=== PATIENT | female | born 1995 | race Caucasian/White ===

== ENCOUNTER 2020-01-09 08:00 | Day surgery (SDC) | payer OTHER, MEDICAID ==
[~2020-01-09] VITALS: Ht 154.9 cm; Wt 143.2 kg
[~2020-01-09 08:00] MED LIST: AMPICILLIN SODIUM 1 GM/VIAL ONE; RINGERS SOLUTION,LACTATED 1,000 ML IV ONE; SODIUM CHLORIDE 0.9% 100 ML ONE
[2020-01-09] MEDS ORDERED: MONT-35 PO (08:17)
[2020-01-09] MEDS ORDERED: LACO10SO3 PO (08:17)
[2020-01-09] MEDS ORDERED: BUTE12CR TP (08:17)
[2020-01-09] MEDS ORDERED: AZEL137S8 NASAL (08:17)
[2020-01-09] MEDS ORDERED: PHEN32.46 PO (08:17)
[2020-01-09] MEDS ORDERED: CLON-465 PO (08:17)
[2020-01-09] MEDS ORDERED: DESO1TAB92 PO (08:17)
[2020-01-09] MEDS ORDERED: FLUO-191 PO (08:17)
[2020-01-09] MEDS ORDERED: LORA10TA7 PO (08:17)
[2020-01-09] MEDS ORDERED: MULT1CAP32 PO (08:17)
[2020-01-09] MEDS ORDERED: PHEN60TA15 PO (08:17)
[2020-01-09] MEDS ORDERED: PHEN20EL8 PO ×2 (08:17)
[2020-01-09] MEDS ORDERED: NYST15PO3 TP (08:17)
[2020-01-09] MEDS ORDERED: AUD NEB (08:17)
[2020-01-09 08:25] LABS: COVID AG,FIA SOURCE NASOPHARYNGEAL
[2020-01-09 08:33] LABS: BASOPHILS % (AUTO) 1.2 % (0.0-2.0); EOSINOPHILS % (AUTO) 0.5 % (1.0-6.0); HEMATOCRIT 38.4 % (36-46); HEMOGLOBIN 13.4 g/dL (12.0-16.0); LYMPHOCYTES # (AUTO) 1.8 K/uL (1.0-4.8); LYMPHOCYTES % (AUTO) 18.1 % (22.0-44.0); MEAN CORPUSCULAR HEMOGLOBIN 30.4 pg (26.0-34.0); MEAN CORPUSCULAR VOLUME 87 fL (80-100); MONOCYTES # (AUTO) 0.9 K/uL (0.1-1.0); MONOCYTES % (AUTO) 9.2 % (2.0-9.0); NEUTROPHILS # (AUTO) 7.2 K/uL (1.8-7.7); PLATELET COUNT (AUTO) 226 K/uL (150-450); RED BLOOD CELL COUNT(AUTO) 4.43 MIL/uL (4.00-5.20); RED CELL DISTRIBUTION WIDTH 14.9 % (11.5-14.5)
[2020-01-09 08:38] LABS: ANION GAP 11 mmol/L (8-16); CALCIUM, TOTAL 8.9 mg/dL (8.8-10.5); CARBON DIOXIDE 26 mmol/L (22-29); CHLORIDE 102 mmol/L (98-107); CREATININE 0.87 mg/dL (0.60-1.30); GLOMERULAR FILTR. RATE CALC > 60 mL/min (>60); GLUCOSE,RANDOM 99 mg/dL (70-110); POTASSIUM 3.7 mmol/L (3.5-5.1); SODIUM SERUM 139 mmol/L (136-145); UREA NITROGEN, BLOOD 11 mg/dL (7-18)
[2020-01-09 08:44] LABS: ALANINE AMINOTRANSFERASE 15 U/L (12-78); ALBUMIN 2.9 g/dL (3.4-5.0); ALKALINE PHOSPHATASE 78 U/L (46-116); ASPARTATE AMINOTRANSFERASE 13 U/L (15-37); BILIRUBIN,TOTAL 0.2 mg/dL (0.1-1.0); TOTAL PROTEIN, SERUM 7.4 g/dL (6.4-8.2)
[2020-01-09 08:46] LABS: INR 0.9 (0.9-1.1); PROTHROMBIN TIME 9.9 SEC (9.4-11.6)
[2020-01-09] MEDS ORDERED: SUGAMMADEX SODIUM 200 MG/2 ML VIAL IVP ONE (11:40)
[2020-01-09] MEDS ORDERED: OXYGEN THERAPY IH SCH (20:00)
[2020-01-10] MEDS ORDERED: DEXAMETHASONE SOD PHOS 4 MG/ML VIAL IVP ONE (06:20)
[2020-01-10] MEDS ORDERED: ESMOLOL HCL 10 MG/ML 10 ML VIAL IVP ONE (06:20)
[2020-01-10] MEDS ORDERED: LIDOCAINE/PF 2% 5 ML VIAL IM ONE (06:20)
[2020-01-10] MEDS ORDERED: ALBUTEROL SULFATE HFA 90 MCG/PUFF 8 GM INHALER IH ONE (06:20)
[2020-01-10] MEDS ORDERED: ROCURONIUM BROMIDE 10 MG/ML 5 ML VIAL IVP ONE (06:20)
[2020-01-10] MEDS ORDERED: PROPOFOL 1% 20 ML VIAL IVP ONE (06:20)
[2020-01-10] MEDS ORDERED: ONDANSETRON HCL 4 MG/2 ML VIAL IVP ONE (06:20)
== END 2020-01-09 13:15 | disposition home or self-care (01) ==
LOC: SDS 08:00 → EDSTATUS 08:30 → SDS 13:15
PROVIDERS: ATTEND Dentist General Practice
DX: K02.9 Dental caries, unspecified (principal); K05.30 Chronic periodontitis, unspecified; K03.6 Deposits [accretions] on teeth; E66.01 Morbid (severe) obesity due to excess calories; F41.9 Anxiety disorder, unspecified; J45.909 Unspecified asthma, uncomplicated; G80.9 Cerebral palsy, unspecified; Z79.899 Other long term (current) drug therapy; Z98.890 Other specified postprocedural states
CPT/HCPCS: 36415; 41899; 71045; 80053; 84703; 85025; 85610; 85730; 87426; 93005; C9803; J0290; J7050; J7120; J1100; J2405; J2704; J3490; J3535